=== PATIENT | male | born 1995 | race Two or more races ===

== ENCOUNTER 2018-02-11 16:46 | Emergency (ER) | payer SELFPAY ==
[2018-02-11] MEDS ORDERED: SODIUM CHLORIDE 0.9% 500 ML INFUS.BAG IV ONE (16:51)
[2018-02-11 16:55] VITALS: TEMP 98.1; BMI 24.5
--- NOTE | 2018-02-11 16:56 | PDOC ---
History of Present Illness - General Chief Complaint: Lightheaded Stated Complaint: DIZZYNESS, Past History - Past Medical History Allergies/Adverse Reactions: Allergies Allergy/AdvReac Type Severity Reaction Status Date / Time No Known Allergies Allergy Verified 02/11/18 16:50 Home Medications: Ambulatory Orders NK [No Known Home Medication] 02/11/18
--- NOTE | 2018-02-11 17:02 | PDOC ---
History of Present Illness - General Chief Complaint: Lightheaded Stated Complaint: DIZZYNESS, Time Seen by Provider: 02/11/18 16:52 History Source: Patient Exam Limitations: No Limitations - History of Present Illness Initial Comments: 02/11/18 16:56 22 YO healthy male presenting with witnessed vasovagal episode while on shift. He was in warm room in ED when he felt flushed and sweaty, dizziness and near syncope, no LOC or head injury. no cp or sob or prodromal sx. no recent illnesses or strenuous activity/stress. +no sudden deaths or cardiac disease in early age of family members. tolerating fluids and oral hydration well, 02/11/18 17:46 Past History - Past Medical History Allergies/Adverse Reactions: Allergies Allergy/AdvReac Type Severity Reaction Status Date / Time No Known Allergies Allergy Verified 02/11/18 16:50 Home Medications: Ambulatory Orders NK [No Known Home Medication] 02/11/18 Anemia: No Asthma: No COPD: No Seizures: No - Suicide/Smoking/Psychosocial Hx Smoking History: Never smoked Have you smoked in the past 12 months: No Information on smoking cessation initiated: No Hx Alcohol Use: No Drug/Substance Use Hx: No Substance Use Type: None Review of Systems - Review of Systems Able to Perform ROS?: Yes Comments:: 02/11/18 16:58 GENERAL/CONSTITUTIONAL: No fever or chills. +sweats. HEAD, EYES, EARS, NOSE AND THROAT: No change in vision or hearing. No ear pain or discharge. No sore throat or mouth pain. No difficulty swallowing.. CARDIOVASCULAR: No chest pain or palpitations, syncope or edema. RESPIRATORY: No SOB, cough, GASTROINTESTINAL No nausea/vomiting. No diarrhea or constipation. GENITOURINARY: No urinary changes MUSCULOSKELETAL: No joint or muscle swelling or pain. No neck or back pain. SKIN: No rash or changes in skin color or lesions. NEUROLOGIC: +dizziness, near syncope. No headache, vertigo, loss of consciousness, or change in strength/sensation. No gait instability. No AMS. HEMATOLOGIC/LYMPHATIC: No anemia ALLERGIC/IMMUNOLOGIC: No hives or skin allergy. All other systems reviewed and negative, or as documented in HPI. *Physical Exam - Vital Signs Last Vital Signs Temp Pulse Resp BP Pulse Ox 98.1 F 72 20 119/69 99 02/11/18 16:47 02/11/18 16:47 02/11/18 16:47 02/11/18 16:47 02/11/18 16:47 - Physical Exam Comments: 02/11/18 16:59 General: awake, alert, +diaphoretic HEENT: NCAT, PERRL, EOMI, clear conjunctiva, anicteric, moist mucus membranes, clear oropharynx. Airway patent, normal phonation Neck: neck supple, FROM - no tenderness Chest: no chest wall tenderness Lungs: CTAB, normal and even respirations, no respiratory distress Heart: RRR, 2+ peripheral pulses throughout, no peripheral edema Abdomen: soft, nontender Back: nontender, normal inspection and ROM MSK: no edema, REDMAN x4, ROM intact. Neuro: alert, oriented appropriately; no focal neurologic deficits. gait stable Skin: warm and well perfused, cap refill <2 sec, normal color Heart Score/ECG Review - ECG Intrepretation Rhythm: Regular Rhythm - Goodyear Goodyear: Normal - P and IN Delta Wave(s) Present: No WPW: No - QRS Poor R Wave Progression: No - ST and T Early Repolarization: Yes Non Specific ST-T Wave changes: Yes Flattened T Waves: Yes Prolonged Q-T Interval: No - ECG Impressions Normal ECG: Yes WPW: No Comment:: 02/11/18 17:48 normal sinus rhythm TWF/inversion in III, benign early repol with no reciprocal depressions. normal intervals including QTc and IN and QRS intervals. ED Treatment Course - LABORATORY CBC & Chemistry Diagram: 02/11/18 17:05 02/11/18 17:05 Medical Decision Making - Medical Decision Making 02/11/18 17:00 22 YOM with near syncope, likely vasovagal episode in setting of being in heated room. no head trauma or injury, no CT imaging indicated. back to baseline, neuro intact, no focal neuro deficits, gait stable. VS checked, wnl. basic labs wnl, including CBC/chem/lytes. observed in the ED - remains well, tolerating oral intake. doubt cardiac pathology or arrhythmia, with sinus rhythm on EKG, normal intervals, no arrhythmia or interval derangements, nonspecific T wave abnormalities in III, no contiguous lead changes. benign early repolarization with upsloping ST segments and no reciprocal depressions, which can be expected in young healthy patient. will discharge in stable condition. hydration, rest and supportive care. return precautions discussed, PMD followup. 02/11/18 17:45 02/11/18 17:49 *DC/Admit/Observation/Transfer Diagnosis at time of Disposition: Vasovagal near syncope - Discharge Dispostion Disposition: HOME Condition at time of disposition: Improved Decision to Admit order: No - Referrals - Patient Instructions Printed Discharge Instructions: DI for Syncope in Adults (Fainting) Additional Instructions: continue with rest and hydration, follow up with Dr. Amos your primary doctor. return if worsening symptoms. make sure to stay cool in this weather. - Post Discharge Activity Forms/Work/School Notes: Back to Work
[2018-02-11 17:18] LABS: HEMATOCRIT 45.7 % (35.4-49); HEMOGLOBIN 15.6 GM/dl (11.7-16.9); MCH 29.7 pg (25.7-33.7); MCHC 34.1 g/dl (32.0-35.9); MEAN CELL VOLUME 87.1 fl (80-96); MEAN PLT VOLUME 8.8 fl (7.5-11.1); PLATELET COUNT 238 K/MM3 (134-434); RBC 5.24 M/mm3 (4.00-5.60); RDW 12.1 % (11.9-15.9); WHITE BLOOD COUNT 7.2 K/mm3 (4.0-10.8)
[2018-02-11 17:31] LABS: ANION GAP 7 (8-16); BLOOD UREA NITROGEN 15 mg/dl (7-18); CALCIUM 9.3 mg/dl (8.4-10.2); CHLORIDE 106 mmol/L (98-107); CO2 26 mmol/L (22-28); CREATININE 1.1 mg/dl (0.6-1.3); GLUCOSE,RANDOM 73 mg/dl (74-106); POTASSIUM 3.7 mmol/L (3.5-5.1); SODIUM 139 mmol/L (136-145)
[2018-02-11 18:27] VITALS: BP 147/99; PULSE 78
--- NOTE | 2018-02-12 10:13 | EKG ---
Test Reason : Blood Pressure : / mmHG Vent. Rate : 075 BPM Atrial Rate : 075 BPM P-R Int : 134 ms QRS Dur : 098 ms QT Int : 372 ms P-R-T Axes : 065 081 025 degrees QTc Int : 415 ms NORMAL SINUS RHYTHM NORMAL ECG NO PREVIOUS ECGS AVAILABLE Confirmed by FRANCIS MARTINEZ MD ([id number]) on 02/12/2018 10:12:53 AM Referred By: MD BARROW Confirmed By:FRANCIS MARTINEZ MD
== END 2018-02-11 18:34 | disposition home or self-care (01) ==
LOC: FER 16:46
PROC: 3E0337Z Introduction of Electrolytic and Water Balance Substance into Peripheral Vein, Percutaneous Approach (ICD-10-PCS; principal; 2018-02-11)
DX: R55 Syncope and collapse (principal); R42 Dizziness and giddiness
CPT/HCPCS: 36415; 80048; 85027; 93005; 99284-25